=== PATIENT | female | born 1970 | race African-American/Black ===

== ENCOUNTER 2017-11-22 12:36 | Inpatient (IN) | payer OTHER ==
--- NOTE | 2017-11-22 13:14 | PN ---
[facility] Progress Note Note: PT REPORTS FALLING ON A WET FLOOR IN THE HALLWAY BY THE VICINITY OF THE ELEVATORS ON THE LOBBY FLOOR WHILE "RUSHING TO THE BATHROOM". PT STATES SHE FELL ON HER RIGHT KNEE AND COMPLAINING OF BACK PAIN. PT IS ALERT O X 3. ACTIVE ROM TO RIGHT AND LEFT EXTREMITIES AND HIP. POSITIVE FLEXION OF HIP AND ABLE TO TOUCH TOES. PLAN:PT WILL BE TRANSFERRED TO [facility] ER FOR EVALUATION AND POSSIBLE TREATMENT. SPOKE WITH RYAN GARVIN AT THE ER WHO STATES PT CAN BE SENT OVER.
[2017-11-22 13:24] VITALS: BMI 29.4
--- NOTE | 2017-11-22 18:15 | HP ---
Admission [facility] Chief Complaint: THC and Cocaine Rehab Allergies/Adverse Reactions: Allergies Allergy/AdvReac Type Severity Reaction Status Date / Time No Known Allergies Allergy Verified 11/22/17 17:58 History of Present Illness: 47 yo female with hx of nicotine, crack / cocaine and THC. PMHX: HIV+, hyperthyroidism, cardiomyopathy with Cardiac arrhythmia with defibrillator as per patient defibrillator was stopped by her grease press helper November 2016, reports poor follow up with medical provider. Denies suicidal / homicidal ideation or suicide attempts. Denies any psychiatric problems. Last rehab 2011. Longest period sobriety 6 years and recently relapse last night. Exam Limitations: No Limitations - Ebola screening Have you traveled outside of the country in the last 21 days: No (N) Have you had contact with anyone from an Ebola affected area: No Have you been sick,other than usual withdrawal symptoms: No Do you have a fever: No - Review of Systems Constitutional: Chills, Loss of Appetite, Changes in sleep, Unintentional Wgt. Loss EENT: reports: No Symptoms Reported Respiratory: reports: Cough (x 2 days) Cardiac: reports: Lightheadedness GI: reports: No Symptoms Reported : reports: Other (currently treatment for yeast infection) Musculoskeletal: reports: Back Pain, Joint Pain (right knee pain) Integumentary: reports: No Symptoms Reported, Other (cyst right middle finger) Neuro: reports: No Symptoms reported Endocrine: reports: See HPI Hematology: reports: Anemia Psychiatric: reports: Orientated x3, Anxious Other Systems: Reviewed and Negative Patient History - Patient Medical History Hx Anemia: Yes Hx Asthma: No Hx Chronic Obstructive Pulmonary Disease (COPD): No Hx Cancer: No Hx Cardiac Disorders: Yes (DEFIBRILLATOR 2008, reports its off since November 2016) Hx Congestive Heart Failure: No Hx Hypertension: No Hx Hypercholesterolemia: No Hx Pacemaker: No HX Cerebrovascular Accident: No Hx Seizures: No Hx Dementia: No Hx Diabetes: No Hx Gastrointestinal Disorders: No Hx Liver Disease: No Hx Genitourinary Disorders: No Hx Sexually Transmitted Disorders: Yes (HIV 2006) Hx Renal Disease (ESRD): No Hx Thyroid Disease: No Hx Human Immunodeficiency Virus (HIV): Yes (HIV 2006) Hx Hepatitis C: No Hx Depression: No Hx Suicide Attempt: No Hx Bipolar Disorder: No Hx Schizophrenia: No - Patient Surgical History Past Surgical History: Yes Hx Cardiac Surgery: Yes (s/p implant defibrillator in chest wall in 2009 at [facility]) Hx Lung Surgery: No Hx Breast Surgery: No Hx Breast Biopsy: No Hx Abdominal Surgery: Yes (umbilical hernia repair at 7 yo ) Hx Appendectomy: No Hx Cholecystectomy: No Hx Genitourinary Surgery: No Hx Section: No Hx Orthopedic Surgery: No Hx Hysterectomy: No Anesthesia Reaction: No - PPD History Previous Implant?: Yes Documented Results: Negative w/proof Date: 11/21/11 PPD to be Administered?: Yes - Reproductive History Patient is a Female of Child Bearing Age (11 -55 yrs old): Yes Last Menstrual Period: 11/08/17 Patient : No - Smoking Cessation Smoking history: Current every day smoker Have you smoked in the past 12 months: Yes Aproximately how many cigarettes per day: 7 Hx Chewing Tobacco Use: No Initiated information on smoking cessation: Yes 'Breaking Loose' booklet given: 11/22/17 - Substance & Tx. History Hx Alcohol Use: No Hx Substance Use: Yes Substance Use Type: Cocaine, Marijuana Hx Substance Use Treatment: Yes ([facility] 2011) - Substances Abused Crack Route: Smoking Frequency: 1-3 times last 30 days Amount used: $60 Age of first use: 29 Date of Last Use: 11/22/17 Marijuana/Hashish Route: Smoking Frequency: Daily Amount used: 1 BLUNT Age of first use: 19 Date of Last Use: 11/21/17 Family Disease History - Family Disease History Family History: Unable to Obtain Other Family History: hx of being adopted Admission Physical Exam [facility] - Vital Signs Vital Signs: Vital Signs - 24 hr 11/22/17 11/22/17 11/22/17 12:55 13:22 17:55 Temperature 98.1 F 98.1 F 98.1 F Pulse Rate 81 81 81 Respiratory 20 20 20 Rate Blood Pressure 146/80 146/80 146/80 - Physical General Appearance: Yes: Nourished, Appropriately Dressed, Anxious HEENTM: Yes: EOMI, Hearing grossly Normal, Normal ENT Inspection, Normocephalic , Normal Voice, Pharynx Normal, Tm's normal Respiratory: Yes: Chest Non-Tender, Lungs Clear, Normal Breath Sounds, No Respiratory Distress, No Accessory Muscle Use Neck: Yes: Within Normal Limits Breast: Yes: Breast Exam Deferred Cardiology: Yes: Regular Rhythm, Regular Rate Abdominal: Yes: Normal Bowel Sounds, Non Tender, Flat, Soft Genitourinary: Yes: Within Normal Limits Back: Yes: Normal Inspection Musculoskeletal: Yes: full range of Motion, Gait Steady, Pelvis Stable, Back pain Extremities: Yes: Normal Capillary Refill, Normal Inspection, Normal Range of Motion Neurological: Yes: cafeteria aide II-XII NML intact, Fully Oriented, Alert, Motor Strength 5/5, Depressed Affect Integumentary: Yes: Normal Color, Dry, Warm Lymphatic: Yes: Within Normal Limits - Diagnostic (1) HIV (human immunodeficiency virus infection) Current Visit: Yes Status: Chronic (2) Cardiac defibrillator in place Current Visit: Yes Status: Chronic Comment: Patient reports her grease press helper turned the defibrilator off on November 2016. (3) Right knee pain Current Visit: Yes Status: Acute Qualifiers: Chronicity: acute Qualified Code(s): M25.561 - Pain in right knee (4) Cocaine dependence Current Visit: No Status: Active (5) Cannabis dependence Current Visit: Yes Status: Active (6) Back pain Current Visit: No Status: Acute Qualifiers: Back pain location: low back pain Chronicity: acute Back pain laterality : unspecified Sciatica presence: without sciatica Qualified Code(s): M54.5 - Low back pain [facility] Breath Alcohol Content Breath Alcohol Content: 0 Urine Pregancy Test - Result Urine Test Results: Negative- NO Line Present Urine Drug Screen - Results Drug Screen Negative: No Urine Drug Screen Results: THC-Marijuana, BRAYDEN-Cocaine Inpatient Rehab Admission - Initial Determination Are CD services needed?: Yes Free of communicable disease: Yes Not in need of hospitalization: Yes - Rehab Admission Criteria Previous failed treatment: Yes Poor recovery environment: Yes Comorbidities: Yes Lacks judgement: Yes Patient is meeting Inpatient Rehab admission criteria:: Yes
[2017-11-22] MEDS ORDERED: MAG HYDROX/AL HYDROX/SIMETH 30 ML UNIT-DOSE CUP PO PRN (18:27)
[2017-11-22] MEDS ORDERED: ACETAMINOPHEN 325 MG TABLET (FP) PO PRN (18:27)
[2017-11-22] MEDS ORDERED: MAGNESIUM HYDROX 2400MG/30ML ORAL SUSPENSION 30 ML CUP PO PRN (18:27)
[2017-11-22] MEDS ORDERED: MAGNESIUM CITRATE 300 ML BOTTLE PO PRN (18:27)
[2017-11-22] MEDS ORDERED: MENTHOL/PHENOL 1 EACH UD MM PRN (18:27)
[2017-11-22] MEDS ORDERED: P-EPHED 60MG/TRIPROLIDI 2.5MG TABLET PO PRN (18:27)
[2017-11-22] MEDS ORDERED: guaiFENesin/D-METHORPHAN HB 10 ML UNIT-DOSE CUPS PO PRN (18:27)
[2017-11-22] MEDS ORDERED: LOPERAMIDE HCL 2 MG CAPSULE PO PRN (18:27)
[2017-11-22] MEDS ORDERED: NICOTINE POLACRILEX 2 MG GUM BC PRN (18:27)
[2017-11-22] MEDS ORDERED: TUBERCULIN PPD 5 TU/0.1ML VIAL ID ONE (21:56)
[2017-11-22] MEDS: LIDOCAINE 5% TOPICAL PATCH TP SCH (21:57)
[2017-11-22] MEDS: METHIMAZOLE 5 MG TABLET (FP) PO SCH (21:59)
[2017-11-22] MEDS: THIAMINE HCL 100 MG TABLET (FP) PO SCH (22:00)
[2017-11-22] MEDS ORDERED: MELATONIN 5 MG TABLETS PO PRN (22:00)
[2017-11-22] MEDS: LIDOCAINE PATCH REMOVAL MC SCH (22:55)
[2017-11-22] MEDS: NAPROXEN 375 MG TABLET (FP) PO SCH (22:57)
[2017-11-22] MEDS: TERCONAZOLE VG SCH (23:00)
[2017-11-22 23:32] LABS: URINE APPEARANCE CLEAR; URINE BILIRUBIN NEGATIVE (<2.0 mg/dL); URINE COLOR STRAW; URINE GLUCOSE (UA) NEGATIVE (NEGATIVE); URINE KETONE NEGATIVE (NEGATIVE); URINE LEUK ESTERASE NEGATIVE (NEGATIVE); URINE NITRITE NEGATIVE (NEGATIVE); URINE PROTEIN NEGATIVE (NEGATIVE); URINE UROBILINOGEN NEGATIVE mg/dL (0.2-1.0)
[2017-11-23] MEDS ORDERED: PT OWN MED DRAWER 7, Y5N ONE ×2 (08:55→20:27)
[2017-11-23] MEDS: EMTRICITABINE 200MG/TENOFOVIR 300MG PO SCH (09:00)
[2017-11-23] MEDS: PATIENT'S OWN MEDICATION (NON-FORMULARY) (Ritonavir [Norvir] 100 MG) PO SCH (09:00)
[2017-11-23] MEDS: LIDOCAINE 5% TOPICAL PATCH TP SCH (09:30)
[2017-11-23] MEDS: NAPROXEN 375 MG TABLET (FP) PO SCH ×2 (09:31→21:48)
[2017-11-23] MEDS: METHIMAZOLE 5 MG TABLET (FP) PO SCH (09:32)
[2017-11-23] MEDS: PRENATAL VITAMINS W/ FOLIC ACID TABLET (FP) PO SCH (09:32)
[2017-11-23] MEDS ORDERED: PATIENT'S OWN MEDICATION (NON-FORMULARY) (Dolutegravir Sodium 50 MG) PO SCH (10:00)
[2017-11-23 10:15] LABS: HEMATOCRIT 37.4 % (32.4-45.2); HEMOGLOBIN 12.9 GM/dL (10.7-15.3); MCH 35.5 pg (25.7-33.7); MCHC 34.5 g/dl (32.0-36.0); MEAN CELL VOLUME 102.9 fl (80-96); MEAN PLT VOLUME 8.9 fl (7.5-11.1); PLATELET COUNT 164 K/MM3 (134-434); RBC 3.63 M/mm3 (3.60-5.2); RDW 13.4 % (11.6-15.6); WHITE BLOOD COUNT 7.3 K/mm3 (4.0-10.0)
[2017-11-23 10:54] LABS: ALBUMIN 3.1 g/dl (3.4-5.0); ANION GAP 8 (8-16); BLOOD UREA NITROGEN 11 mg/dL (7-18); CALCIUM 8.4 mg/dL (8.5-10.1); CHLORIDE 105 mmol/L (98-107); CO2 27 mmol/L (21-32); GLUCOSE,RANDOM 98 mg/dL (74-106); POTASSIUM 3.1 mmol/L (3.5-5.1); SODIUM 140 mmol/L (136-145)
[2017-11-23 10:58] LABS: ALK PHOS 76 U/L (45-117); BILIRUBIN,TOTAL 0.5 mg/dL (0.2-1.0); CREATININE 0.8 mg/dL (0.55-1.02); SGOT/AST 37 U/L (15-37); SGPT/ALT 20 U/L (12-78); TOT PROT 7.4 g/dl (6.4-8.2)
--- NOTE | 2017-11-23 12:24 | EKG ---
Test Reason : Blood Pressure : / mmHG Vent. Rate : 054 BPM Atrial Rate : 054 BPM P-R Int : 180 ms QRS Dur : 090 ms QT Int : 442 ms P-R-T Axes : 040 -07 048 degrees QTc Int : 419 ms SINUS BRADYCARDIA WITH SINUS ARRHYTHMIA POSSIBLE LEFT ATRIAL ENLARGEMENT BORDERLINE ECG NO PREVIOUS ECGS AVAILABLE Confirmed by MD EDVIN, JENNIFFER ([id number]) on 11/23/2017 12:24:26 PM Referred By: Confirmed By:JENNIFFER PARDO MD
--- NOTE | 2017-11-23 13:53 | PN ---
[facility] Progress Note Note: Patient on HAART therapy consisting on four antivirals: Trivicay, Decovy, Norvir , and Prezista. Patient reports adherence with therapy and not taking her medications in the past two days. Patient present with only Trivicay and Norvir , reports she forgot to bring her other two medications. Discussed with pharmacy current issue. Truvada ordered in place of Descovy, since Descoy is NF. Prezista ordered as well. Patient was educated on the importance to follow up with medical provider upon discharge.
--- NOTE | 2017-11-23 14:59 | PN ---
[facility] Progress Note Note: Vital Signs Temperature 98.6 F 11/23/17 10:22 Pulse Rate 67 11/23/17 10:22 Respiratory Rate 18 11/23/17 10:22 Blood Pressure 133/88 11/23/17 10:22 O2 Sat by Pulse Oximetry (%) Laboratory Last Values WBC 7.3 K/mm3 (4.0-10.0) D 11/23/17 08:30 RBC 3.63 M/mm3 (3.60-5.2) 11/23/17 08:30 Hgb 12.9 GM/dL (10.7-15.3) 11/23/17 08:30 Hct 37.4 % (32.4-45.2) 11/23/17 08:30 MCV 102.9 fl (80-96) H 11/23/17 08:30 MCH 35.5 pg (25.7-33.7) H 11/23/17 08:30 MCHC 34.5 g/dl (32.0-36.0) 11/23/17 08:30 RDW 13.4 % (11.6-15.6) 11/23/17 08:30 Plt Count 164 K/MM3 (134-434) 11/23/17 08:30 MPV 8.9 fl (7.5-11.1) 11/23/17 08:30 Sodium 140 mmol/L (136-145) 11/23/17 08:30 Potassium 3.1 mmol/L (3.5-5.1) L 11/23/17 08:30 Chloride 105 mmol/L (98-107) 11/23/17 08:30 Carbon Dioxide 27 mmol/L (21-32) 11/23/17 08:30 Anion Gap 8 (8-16) 11/23/17 08:30 BUN 11 mg/dL (7-18) 11/23/17 08:30 Creatinine 0.8 mg/dL (0.55-1.02) 11/23/17 08:30 Creat Clearance w eGFR > 60 (>60) 11/23/17 08:30 Random Glucose 98 mg/dL (74-106) 11/23/17 08:30 Calcium 8.4 mg/dL (8.5-10.1) L 11/23/17 08:30 Total Bilirubin 0.5 mg/dL (0.2-1.0) 11/23/17 08:30 AST 37 U/L (15-37) 11/23/17 08:30 ALT 20 U/L (12-78) 11/23/17 08:30 Alkaline Phosphatase 76 U/L (45-117) 11/23/17 08:30 Total Protein 7.4 g/dl (6.4-8.2) 11/23/17 08:30 Albumin 3.1 g/dl (3.4-5.0) L 11/23/17 08:30 Urine Color Straw 11/22/17 22:30 Urine Appearance Clear 11/22/17:30 Urine pH 6.0 (5.0-8.0) 11/22/17:30 Ur Specific [place] 1.004 (1.001-1.035) 11/22/17 22:30 Urine Protein Negative (NEGATIVE) 11/22/17 22:30 Urine Glucose (UA) Negative (NEGATIVE) 11/22/17:30 Urine Ketones Negative (NEGATIVE) 11/22/17:30 Urine Blood Negative (NEGATIVE) 11/22/17 22:30 Urine Nitrite Negative (NEGATIVE) 11/22/17 22:30 Urine Bilirubin Negative (<2.0 mg/dL) 11/22/17:30 Urine Urobilinogen Negative mg/dL (0.2-1.0) 11/22/17 22:30 Ur Leukocyte Esterase Negative (NEGATIVE) 11/22/17 22:30 Hypokelemia Potassium 20mg qd ordered Repat K+ in the AM continue to monitor
[2017-11-23] MEDS: DARUNAVIR ETHANOLATE 800 MG TAB PO SCH (15:27)
[2017-11-23] MEDS: CHLORHEXIDINE GLUCONATE 118 ML MOUTHWASH MM SCH ×2 (15:29→21:47)
[2017-11-23] MEDS: POTASSIUM CHLORIDE TABS 20 MEQ TABLET.ER (FP) PO SCH (15:31)
[2017-11-23] MEDS: THIAMINE HCL 100 MG TABLET (FP) PO SCH (21:45)
[2017-11-23] MEDS: LIDOCAINE PATCH REMOVAL MC SCH (21:47)
[2017-11-23] MEDS: TERCONAZOLE VG SCH (21:47)
[2017-11-24] MEDS ORDERED: PT OWN MED DRAWER 7, Y5N ONE ×4 (03:25→23:40)
[2017-11-24] MEDS: PATIENT'S OWN MEDICATION (NON-FORMULARY) (Dolutegravir Sodium 50 MG) PO SCH (07:41)
[2017-11-24] MEDS: PATIENT'S OWN MEDICATION (NON-FORMULARY) (Ritonavir [Norvir] 100 MG) PO SCH (07:41)
[2017-11-24] MEDS: DARUNAVIR ETHANOLATE 800 MG TAB PO SCH (07:41)
[2017-11-24] MEDS: EMTRICITABINE 200MG/TENOFOVIR 300MG PO SCH (07:41)
[2017-11-24] MEDS: LIDOCAINE 5% TOPICAL PATCH TP SCH (10:11)
[2017-11-24] MEDS: PRENATAL VITAMINS W/ FOLIC ACID TABLET (FP) PO SCH (10:11)
[2017-11-24] MEDS: NAPROXEN 375 MG TABLET (FP) PO SCH ×2 (10:11→21:34)
[2017-11-24] MEDS: POTASSIUM CHLORIDE TABS 20 MEQ TABLET.ER (FP) PO SCH (10:11)
[2017-11-24] MEDS: CHLORHEXIDINE GLUCONATE 118 ML MOUTHWASH MM SCH ×2 (10:12→21:34)
[2017-11-24] MEDS: METHIMAZOLE 5 MG TABLET (FP) PO SCH (10:12)
--- NOTE | 2017-11-24 13:09 | HP ---
Psychiatrist Admission - Data Date of interview: 11/24/17 Admission source: [facility] Identifying data: This is the first admission to [address] [place] [address] for this 47 years old single AA female mother of 5 (youngest 7 yo daughter currently resedes with family).patient resides with her daughter,supported by SHELBIE,VICKI. Medical History: Significant for Cardiopathy with cardiofibrillator placement( stopped in 2015),HIV+,Hypothyroidism. Psychiatric History: No psychiatric history ,reports some sleeping difficulties on and off. Physical/Sexual Abuse/Trauma History: denies Vital Signs: Vital Signs - 24 hr 11/23/17 11/24/17 11/24/17 13:22 00:30 06:30 Temperature 98.7 F 98.5 F Pulse Rate 65 76 Respiratory 18 18 18 Rate Blood Pressure 138/86 118/80 Allergies/Adverse Reactions: Allergies Allergy/AdvReac Type Severity Reaction Status Date / Time No Known Allergies Allergy Verified 11/22/17 17:58 Date of last physical exam: 11/22/17 Concur with the findings of this exam: Yes - Substance Abuse/Tx History Hx Alcohol Use: No Hx Substance Use: Yes (reports starting marijuana since 19 yo,$60 daily,cocaine since 38 yo,$60 da) Substance Use Type: Cocaine, Marijuana Hx Substance Use Treatment: Yes (longest abstinence is about 6 years) Mental Status Exam - Mental Status Exam Alert and Oriented to: Time, Place, Person Cognitive Function: Grossly Intact Patient Appearance: Well Groomed Mood: Euthymic Affect: Appropriate, Mood Congruent Patient Behavior: Cooperative Speech Pattern: Clear Voice Loudness: Normal Thought Process: Goal Oriented Thought Disorder: Not Present Hallucinations: Denies Suicidal Ideation: Denies Homicidal Ideation: Denies Insight/Judgement: Fair Sleep: Fair Appetite: Good Muscle strength/Tone: Normal Gait/Station: Normal Psychiatric Findings - Problem List ([place] 1, 2,3) (1) Cannabis dependence Current Visit: Yes Status: Chronic (2) Hypokalemia Current Visit: Yes Status: Chronic (3) Cardiac defibrillator in place Current Visit: Yes Status: Inactive Comment: Patient reports her bilingual secretary turned the defibrilator off on November 2016. (4) HIV (human immunodeficiency virus infection) Current Visit: Yes Status: Chronic (5) Cocaine dependence Current Visit: Yes Status: Chronic (6) Back pain Current Visit: Yes Status: Chronic Qualifiers: Back pain location: low back pain Chronicity: acute Back pain laterality : unspecified Sciatica presence: without sciatica Qualified Code(s): M54.5 - Low back pain - Initial Treatment Plan Initial Treatment Plan: Benadryl 50 mg po hs prn for insomnia.Will monitor progress.
--- NOTE | 2017-11-24 13:12 | PN ---
[facility] Progress Note Note: REPEAT POTASSIUM NORMAL 3.9. WILL CONTINUE TO MONITOR CLINICALLY.
[2017-11-24] MEDS: LIDOCAINE PATCH REMOVAL MC SCH (21:34)
[2017-11-24] MEDS: THIAMINE HCL 100 MG TABLET (FP) PO SCH (21:35)
[2017-11-24] MEDS: TERCONAZOLE VG SCH (21:36)
[2017-11-24] MEDS: diphenhydrAMINE HCL 50 MG CAPSULE PO PRN (21:37)
[2017-11-25] MEDS ORDERED: PT OWN MED DRAWER 7, Y5N ONE ×4 (03:12→21:35)
[2017-11-25] MEDS: PATIENT'S OWN MEDICATION (NON-FORMULARY) (Dolutegravir Sodium 50 MG) PO SCH (09:43)
[2017-11-25] MEDS: DARUNAVIR ETHANOLATE 800 MG TAB PO SCH (09:44)
[2017-11-25] MEDS: EMTRICITABINE 200MG/TENOFOVIR 300MG PO SCH (09:45)
[2017-11-25] MEDS: PATIENT'S OWN MEDICATION (NON-FORMULARY) (Ritonavir [Norvir] 100 MG) PO SCH (09:45)
[2017-11-25] MEDS: LIDOCAINE 5% TOPICAL PATCH TP SCH (10:13)
[2017-11-25] MEDS: CHLORHEXIDINE GLUCONATE 118 ML MOUTHWASH MM SCH ×2 (10:13→21:34)
[2017-11-25] MEDS: NAPROXEN 375 MG TABLET (FP) PO SCH ×2 (10:15→21:33)
[2017-11-25] MEDS: PRENATAL VITAMINS W/ FOLIC ACID TABLET (FP) PO SCH (10:16)
[2017-11-25] MEDS: PANTOPRAZOLE 40 MG TABLET (FP) PO SCH (10:16)
[2017-11-25] MEDS: METHIMAZOLE 5 MG TABLET (FP) PO SCH (10:17)
[2017-11-25] MEDS: THIAMINE HCL 100 MG TABLET (FP) PO SCH (21:32)
[2017-11-25] MEDS: LIDOCAINE PATCH REMOVAL MC SCH (21:33)
[2017-11-25] MEDS: TERCONAZOLE VG SCH (21:33)
[2017-11-25] MEDS: diphenhydrAMINE HCL 50 MG CAPSULE PO PRN (21:35)
[2017-11-26] MEDS ORDERED: PT OWN MED DRAWER 7, Y5N ONE ×3 (05:46→09:27)
[2017-11-26] MEDS: DARUNAVIR ETHANOLATE 800 MG TAB PO SCH (07:32)
[2017-11-26] MEDS: EMTRICITABINE 200MG/TENOFOVIR 300MG PO SCH (07:32)
[2017-11-26] MEDS: PATIENT'S OWN MEDICATION (NON-FORMULARY) (Ritonavir [Norvir] 100 MG) PO SCH (07:32)
[2017-11-26] MEDS: PATIENT'S OWN MEDICATION (NON-FORMULARY) (Dolutegravir Sodium 50 MG) PO SCH (07:33)
[2017-11-26] MEDS: CHLORHEXIDINE GLUCONATE 118 ML MOUTHWASH MM SCH ×2 (10:43→21:46)
[2017-11-26] MEDS: LIDOCAINE 5% TOPICAL PATCH TP SCH (10:44)
[2017-11-26] MEDS: PRENATAL VITAMINS W/ FOLIC ACID TABLET (FP) PO SCH (10:45)
[2017-11-26] MEDS: NAPROXEN 375 MG TABLET (FP) PO SCH ×2 (10:45→21:46)
[2017-11-26] MEDS: METHIMAZOLE 5 MG TABLET (FP) PO SCH (10:46)
[2017-11-26] MEDS: PANTOPRAZOLE 40 MG TABLET (FP) PO SCH (10:46)
[2017-11-26] MEDS: THIAMINE HCL 100 MG TABLET (FP) PO SCH (21:45)
[2017-11-26] MEDS: LIDOCAINE PATCH REMOVAL MC SCH (21:46)
[2017-11-26] MEDS: TERCONAZOLE VG SCH (21:46)
[2017-11-26] MEDS: diphenhydrAMINE HCL 50 MG CAPSULE PO PRN (21:47)
[2017-11-27] MEDS ORDERED: PT OWN MED DRAWER 7, Y5N ONE ×2 (08:28→19:51)
[2017-11-27] MEDS: DARUNAVIR ETHANOLATE 800 MG TAB PO SCH (09:53)
[2017-11-27] MEDS: PANTOPRAZOLE 40 MG TABLET (FP) PO SCH (09:54)
[2017-11-27] MEDS: PRENATAL VITAMINS W/ FOLIC ACID TABLET (FP) PO SCH (09:54)
[2017-11-27] MEDS: NAPROXEN 375 MG TABLET (FP) PO SCH ×2 (09:54→21:35)
[2017-11-27] MEDS: METHIMAZOLE 5 MG TABLET (FP) PO SCH (09:55)
[2017-11-27] MEDS: CHLORHEXIDINE GLUCONATE 118 ML MOUTHWASH MM SCH ×2 (09:55→22:00)
[2017-11-27] MEDS: LIDOCAINE 5% TOPICAL PATCH TP SCH (09:55)
[2017-11-27] MEDS: PATIENT'S OWN MEDICATION (NON-FORMULARY) (Dolutegravir Sodium 50 MG) PO SCH (09:56)
[2017-11-27] MEDS: PATIENT'S OWN MEDICATION (NON-FORMULARY) (Ritonavir [Norvir] 100 MG) PO SCH (09:56)
[2017-11-27] MEDS: EMTRICITABINE 200MG/TENOFOVIR 300MG PO SCH (09:57)
[2017-11-27] MEDS: TERCONAZOLE VG SCH (22:00)
[2017-11-27] MEDS: LIDOCAINE PATCH REMOVAL MC SCH (22:10)
[2017-11-27] MEDS: THIAMINE HCL 100 MG TABLET (FP) PO SCH (22:10)
[2017-11-28 07:28] VITALS: BP 104/74; PULSE 91; TEMP 98.3
[2017-11-28] MEDS: DARUNAVIR ETHANOLATE 800 MG TAB PO SCH (09:48)
[2017-11-28] MEDS: PATIENT'S OWN MEDICATION (NON-FORMULARY) (Dolutegravir Sodium 50 MG) PO SCH (09:48)
[2017-11-28] MEDS: PANTOPRAZOLE 40 MG TABLET (FP) PO SCH (09:49)
[2017-11-28] MEDS: NAPROXEN 375 MG TABLET (FP) PO SCH ×2 (09:49→21:39)
[2017-11-28] MEDS: PRENATAL VITAMINS W/ FOLIC ACID TABLET (FP) PO SCH (09:49)
[2017-11-28] MEDS: PATIENT'S OWN MEDICATION (NON-FORMULARY) (Ritonavir [Norvir] 100 MG) PO SCH (09:49)
[2017-11-28] MEDS: LIDOCAINE 5% TOPICAL PATCH TP SCH (09:50)
[2017-11-28] MEDS: METHIMAZOLE 5 MG TABLET (FP) PO SCH (10:07)
[2017-11-28] MEDS: CHLORHEXIDINE GLUCONATE 118 ML MOUTHWASH MM SCH ×2 (10:07→21:36)
[2017-11-28] MEDS: EMTRICITABINE 200MG/TENOFOVIR 300MG PO SCH (10:07)
[2017-11-28] MEDS: TERCONAZOLE VG SCH (21:35)
[2017-11-28] MEDS: THIAMINE HCL 100 MG TABLET (FP) PO SCH (21:37)
[2017-11-28] MEDS: diphenhydrAMINE HCL 50 MG CAPSULE PO PRN (21:37)
[2017-11-28] MEDS: LIDOCAINE PATCH REMOVAL MC SCH (21:38)
== END 2017-11-29 06:16 | disposition home or self-care (01) | DRG 772 ==
LOC: YASAS 12:36 → Y3E 18:10
PROVIDERS: ADMIT Psychiatry & Neurology Psychiatry; ATTEND Psychiatry & Neurology Psychiatry
PROC: HZ42ZZZ Group Counseling for Substance Abuse Treatment, Cognitive-Behavioral (ICD-10-PCS; principal; 2017-11-22)
DX: F14.20 Cocaine dependence, uncomplicated (principal); F12.20 Cannabis dependence, uncomplicated; F17.210 Nicotine dependence, cigarettes, uncomplicated; F19.282 Other psychoactive substance dependence with psychoactive substance-induced sleep disorder; E87.6 Hypokalemia; E05.90 Thyrotoxicosis, unspecified without thyrotoxic crisis or storm; Z21 Asymptomatic human immunodeficiency virus [HIV] infection status; M54.5 Low back pain; M25.561 Pain in right knee; I42.9 Cardiomyopathy, unspecified; Z95.810 Presence of automatic (implantable) cardiac defibrillator; W01.0XXA Fall on same level from slipping, tripping and stumbling without subsequent striking against object, initial encounter; Y93.02 Activity, running; Y92.238 Other place in hospital as the place of occurrence of the external cause
CPT/HCPCS: 36415; 80053; 81003; 84132; 85027; 86593; 93005; 93010